=== PATIENT | female | born 1965 | race American Indian/Alaskan Native ===

== ENCOUNTER 2017-08-31 18:37 | Emergency (ER) | payer OTHER ==
[2017-08-31 18:39] VITALS: BMI 32.3
--- NOTE | 2017-08-31 19:04 | ED PDOC ---
Arrival/HPI - General Time Seen by Provider: 08/31/17 18:48 Historian: Patient - History of Present Illness Narrative History of Present Illness (Text): 08/31/17 18:56 52 y/o female pmh including htn, nkda, post menopausal, biba, c/o elevated blood pressure x 1 day. Pt. stated that her BP has been high through out the day, checked it again during the work which noted to have systolic 200s/100s, panicked and hyperventilating which she felt dizziness but resolved now, no numbness or tingling, no chest pain or shortness of breath, no slurred speech, no rash, no hematuria, no other medical or psychological complaints. Past Medical History - Provider Review Nursing Documentation Reviewed: Yes - Infectious Disease Hx of Infectious Diseases: None - Tetanus Immunization Tetanus Immunization: Unknown - Cardiac Hx Hypertension: Yes - Psychiatric Hx Substance Use: No - Past Surgical History Past Surgical History: No Previous Family/Social History - Physician Review Nursing Documentation Reviewed: Yes Family/Social History: Unknown Family HX Hx Alcohol Use: No Hx Substance Use: No Hx Substance Use Treatment: No Allergies/Home Meds Allergies/Adverse Reactions: Allergies No Known Allergies Allergy (Verified 04/11/13 10:13) Home Medications: Home Meds Medication Instructions Recorded Confirmed Glyburide/Metformin HCl 1 tab PO BID 08/31/17 08/31/17 [Glyburide-Metformin 2.5-500 mg] Valsartan [Diovan] 320 mg PO DAILY 08/31/17 08/31/17 Review of Systems - Review of Systems Constitutional: absent: Fatigue, Fevers Eyes: absent: Vision Changes ENT: absent: Hearing Changes Respiratory: absent: SOB, Cough Cardiovascular: absent: Chest Pain Gastrointestinal: absent: Abdominal Pain, Nausea, Vomiting Skin: absent: Rash, Pruritis Neurological: absent: Headache, Dizziness Psychiatric: absent: Anxiety, Depression, Suicidal Ideation Physical Exam Vital Signs Temp Pulse Resp BP Pulse Ox 08/31/17 22:36 81 18 158/72 H 98 08/31/17 22:14 69 18 180/93 H 99 08/31/17 21:11 75 20 205/107 H 98 08/31/17 21:10 75 217/102 H 08/31/17 20:40 88 18 217/104 H 98 08/31/17 19:37 202/100 H 08/31/17 19:36 90 202/100 H 08/31/17 19:08 97 F L 212/108 H 08/31/17 19:01 86 18 230/112 H 98 - Systems Exam Head: Present: Atraumatic, Normocephalic Pupils: Present: PERRL Extroacular Muscles: Present: EOMI Conjunctiva: Present: Normal Mouth: Present: Moist Mucous Membranes Neck: Present: Normal Range of Motion Respiratory/Chest: Present: Clear to Auscultation, Good Air Exchange. No: Respiratory Distress, Accessory Muscle Use Cardiovascular: Present: Regular Rate and Rhythm, Normal S1, S2. No: Murmurs Abdomen: No: Tenderness, Distention, Peritoneal Signs Back: Present: Normal Inspection Upper Extremity: Present: Normal Inspection. No: Cyanosis, Edema Lower Extremity: Present: Normal Inspection. No: Edema Neurological: Present: GCS=15, CN II-XII Intact, Speech Normal, Motor Func Grossly Intact, Gait Normal, Memory Normal, Other (normal finger to nose test, normal heel to laguerre test, NIHSS is zero) Skin: Present: Warm, Dry, Normal Color. No: Rashes Psychiatric: Present: Alert, Oriented x 3, Normal Insight, Normal Concentration Medical Decision Making ED Course and Treatment: 08/31/17 18:58 Differential: HTN vs. hypertensive urgency vs. hypertensive emergency -labs -CT head -Clonidine 0.2mg po -Observe and reassess 08/31/17 21:08 -Still elevated BP after clonidine 0.2mg po, systolic still at 200s/100s, IV hydralazine ordered 08/31/17 22:37 -EKG: NSR @ 83 BPM, no ST elevation or depression, no T wave inversion -CT head show No acute findings. -Labs show no acute findings -Pt. feels well, no medical or psychological complaints, BP at 158/72, asymptomatic, all labs and radiology result discussed with the patient which her BP medication needs to be adjusted or add another class. -Discharge home with education on follow up with your own pmd Dr. Hsu tomorrow for follow up about your elevation of blood pressure and not well control by current medication, return to the ER for any new or worsening signs or symptoms. - Lab Interpretations Lab Results: 08/31/17 19:20 08/31/17 19:20 Lab Results 08/31/17 19:20: WBC 5.9, RBC 4.77, Hgb 12.4, Hct 37.1, MCV 77.8 L, MCH 26.0, MCHC 33.4, RDW 13.5, Plt Count 211, MPV 11.5 H, Gran % 57.9, Lymph % (Auto) 35.0 , Mcn[place] % (Auto) 4.4, Eos % (Auto) 2.4, Baso % (Auto) 0.3, Gran # 3.39, Lymph # ( Auto) 2.1, [place] # (Auto) 0.3, Eos # (Auto) 0.1, Baso # (Auto) 0.02 08/31/17 19:20: Sodium 138, Potassium 4.5, Chloride 103, Carbon Dioxide 23, Anion Gap 16, BUN 15, Creatinine 0.6 L, Est GFR ( Amer) > 60, Est GFR ( Non-Af Amer) > 60, Random Glucose 283 H, Calcium 9.4, Magnesium 1.9, Total Bilirubin 0.3, AST 27, ALT 36, Alkaline Phosphatase 115, Total Protein 7.4, Albumin 3.9, Globulin 3.5, Albumin/Globulin Ratio 1.1 - RAD Interpretation Radiology Orders: 08/31/17 19:07 HEAD W/O CONTRAST [CT] Stat FINDINGS: Brain: Unremarkable. No hemorrhage. No significant white matter disease. No edema. Ventricles: Unremarkable. No ventriculomegaly. Bones/joints: Unremarkable. No acute fracture. Soft tissues: Unremarkable. Sinuses: Unremarkable as visualized. No acute sinusitis. Mastoid air cells: Unremarkable as visualized. No mastoid effusion. Other findings: No acute findings. IMPRESSION: No acute findings. Thank you for allowing us to participate in the care of your patient. Dictated and Authenticated by: Laurie Santiago MD 08/31/2017 8:51 PM Eastern Time ([place] & [place]) Financial Sales Professional: Radiologist - EKG Interpretation EKG Interpretation (Text): 08/31/17 18:59 -EKG: NSR @ 83 BPM, no ST elevation or depression, no T wave inversion. Interpreted by ED Physician: Yes Type: 12 lead EKG - Medication Orders Current Medication Orders: Hydralazine HCl (Apresoline) 10 mg IVP STAT JARGUTI Last Admin: 08/31/17 22:14 Dose: 10 mg IVP Administration Document 08/31/17 22:14 SS (Rec: 08/31/17 22:14 SS [id number]) Charges for Administration # of IVP Administrations 1 MAR Pulse and Blood Pressure Document 08/31/17 22:14 SS (Rec: 08/31/17 22:14 SS [id number]) Pulse Pulse Rate (60-90 beats/min) 69 Blood Pressure Blood Pressure (100/60-150/90 mm Hg) 181/112 Discontinued Medications Clonidine HCl (Catapres) 0.2 mg PO STAT STA Stop: 08/31/17 19:08 Last Admin: 08/31/17 19:36 Dose: 0.2 mg MAR Pulse and Blood Pressure Document 08/31/17 19:36 SS (Rec: 08/31/17 19:37 SS [id number]) Pulse Pulse Rate (60-90 beats/min) 90 Blood Pressure Blood Pressure (100/60-150/90 mm Hg) 202/100 Hydralazine HCl (Apresoline) 10 mg IVP STAT STA Stop: 08/31/17 21:03 Last Admin: 08/31/17 21:10 Dose: 10 mg IVP Administration Document 08/31/17 21:10 SS (Rec: 08/31/17 21:10 SS [id number]) Charges for Administration # of IVP Administrations 1 MAR Pulse and Blood Pressure Document 08/31/17 21:10 SS (Rec: 08/31/17 21:10 SS [id number]) Pulse Pulse Rate (60-90 beats/min) 75 Blood Pressure Blood Pressure (100/60-150/90 mm Hg) 217/102 - PA / COVERSTITCH BINDER / Resident Statement MD/DO has reviewed & agrees with the documentation as recorded. Disposition/Present on Arrival - Present on Arrival Any Indicators Present on Arrival: No History of DVT/PE: No History of Uncontrolled Diabetes: No Urinary Catheter: No History of Decub. Ulcer: No History Surgical Site Infection Following: None - Disposition Have Diagnosis and Disposition been Completed?: Yes Diagnosis: HTN (hypertension) Disposition: HOME/ ROUTINE Disposition Time: 22:39 Patient Plan: Discharge Condition: IMPROVED Additional Instructions: -Discharge home with education on follow up with your own pmd Dr. Hsu tomorrow for follow up about your elevation of blood pressure and not well control by current medication, return to the ER for any new or worsening signs or symptoms. Referrals: Jf Hsu MD [Staff Provider] - Follow up with primary Forms: WORK NOTE
[2017-08-31 19:21] VITALS: TEMP 97
[2017-08-31 19:42] LABS: ALB/GLOB RATIO 1.1 (1.1-1.8); ALBUMIN 3.9 g/dL (3.0-4.8); ALT/SGPT 36 U/L (7-56); AST/SGOT 27 U/L (14-36); BASO # 0.02 K/mm3 (0.0-2.0); BASO % 0.3 % (0.0-3.0); BLOOD UREA NITROGEN 15 mg/dL (7-21); CALCIUM 9.4 mg/dL (8.4-10.5); EOS # 0.1 (0.0-0.7); EOS % 2.4 % (1.5-5.0); GFR AFRICAN-AMERICAN > 60; GFR NON-AFRICAN AMERICAN > 60; GRAN # 3.39 (1.4-6.5); GRAN % 57.9 % (50.0-68.0); HEMOGLOBIN 12.4 g/dL (12.0-16.0); LYMPH # 2.1 (1.2-3.4); MEAN CELL VOLUME 77.8 fl (80.0-105.0); MEAN CORPUSCULAR HGB CONC 33.4 g/dl (31.0-37.0); MEAN PLATELET VOLUME 11.5 fl (7.0-11.0); MONO # 0.3 (0.1-0.6); MONO % 4.4 % (1.0-6.0); RBC 4.77 10^6/uL (3.5-6.1); RED CELL DISTRIBUTION WIDTH 13.5 % (11.5-14.5); WHITE BLOOD COUNT 5.9 10^3/ul (4.5-11.0)
[2017-08-31 22:15] VITALS: RESP 18
[2017-08-31 22:37] VITALS: BP 158/72; PULSE 81; O2SAT 98
--- NOTE | 2017-09-01 08:07 | CT ---
PROCEDURE: CT HEAD WITHOUT CONTRAST. HISTORY: dizziness/elevated bp, r/o bleed COMPARISON: None available. TECHNIQUE: Axial computed tomography images were obtained through the head/brain without intravenous contrast. Radiation dose: Total exam DLP = 863 mGy-cm. This CT exam was performed using one or more of the following dose reduction techniques: Automated exposure control, adjustment of the mA and/or kV according to patient size, and/or use of iterative reconstruction technique. FINDINGS: HEMORRHAGE: No intracranial hemorrhage. BRAIN: No mass effect or edema. No atrophy or chronic microvascular ischemic changes. VENTRICLES: Unremarkable. No hydrocephalus. CALVARIUM: Unremarkable. PARANASAL SINUSES: Unremarkable as visualized. No significant inflammatory changes. MASTOID AIR CELLS: Unremarkable as visualized. No inflammatory changes. OTHER FINDINGS: None. IMPRESSION: Normal CT of the Head.
--- NOTE | 2017-09-01 08:43 | CARD ---
APPROVED REPORT EKG Measurement Heart [id number] <Conclusion> Normal sinus rhythm QS in V 1, possible septal SC, age unknown LVH Nonspecific T wave abnormality
== END 2017-08-31 22:49 | disposition home or self-care (01) ==
LOC: ED 18:37
DX: I10 Essential (primary) hypertension (principal)
CPT/HCPCS: 70450; 80053; 83735; 85025; 93005; 96374; 96376; 99285; J0360